=== PATIENT | male | born 1945 | race Caucasian/White ===

== ENCOUNTER 2022-03-13 19:39 | Inpatient (IN) | payer OTHER ==
[~2022-03-13] VITALS: Ht 170.2 cm; Wt 80.0 kg
[2022-03-13 20:26] LABS: BASOPHIL 0.6 % (0-2); EOSINOPHIL 1.7 % (0-7); HGB 11.9 g/dl (13.2-18.0); LYMPHOCYTE 6.7 % (15-48); MCH 30.8 pg (25.0-31.0); MCV 88.1 fL (78.0-100.0); MONOCYTE 1.7 % (0-12); MPV 10.2 fL (6.0-9.5); NEUTROPHIL 88.2 % (41-80); NRBC 0; PLT 102 K/uL (150-400); RBC 3.86 M/uL (4.70-6.00); RDW 15.1 % (11.5-14.0)
[2022-03-13 20:29] LABS: BILIRUBIN NEGATIVE (NEGATIVE); BLOOD 2+ Ery/uL (NEGATIVE); CLARITY CLEAR (CLEAR); COLOR YELLOW (YELLOW); GLUCOSE (U) NORMAL (NORMAL); LEUKOCYTES NEGATIVE Leu/uL (NEGATIVE); NITRITE POSITIVE (NEGATIVE); PROTEIN 1+ mg/dL (NEGATIVE); SPECIFIC GRAVITY 1.025 (1.001-1.030); UROBILINOGEN 0.2 mg/dL (0.2-1.0)
[2022-03-13 20:31] LABS: WBC 5.4 K/uL (4.0-10.5)
[2022-03-13 20:57] LABS: ALBUMIN 2.8 g/dL (3.4-5.0); BILIRUBIN - TOTAL 0.5 mg/dL (0.2-1.0); BUN/CREAT RATIO (CALC) 15.9 RATIO; CREATININE 1.32 mg/dL (0.67-1.17); GLOBULIN (CALCULATION) 4.6 g/dL; LACTIC ACID 1.4 mmol/L (0.4-1.9); TOTAL PROTEIN 7.4 g/dL (6.4-8.2)
[2022-03-13 21:03] LABS: URINARY RBC 20-50
[2022-03-13 21:04] LABS: AMORPHOUS URATES CRYSTALS TRACE; BACTERIA TRACE; SQUAMOUS EPITHELIAL CELLS RARE
[2022-03-13 21:21] LABS: CORONAVIRUS 2019 SARS-COV-2 NEGATIVE (NEGATIVE); INFLUENZA A NAA NEGATIVE (NEGATIVE)
[2022-03-14 05:36] LABS: BASOPHIL 0.5 % (0-2); EOSINOPHIL 1.3 % (0-7); HCT 32.3 % (42.0-52.0); HGB 10.6 g/dl (13.2-18.0); LYMPHOCYTE 14.1 % (15-48); MCH 29.4 pg (25.0-31.0); MCHC 32.8 g/dL (32.0-36.0); MCV 89.7 fL (78.0-100.0); MPV 10.5 fL (6.0-9.5); NEUTROPHIL 79.7 % (41-80); NRBC 0.3; PLT 54 K/uL (150-400); RDW 15.4 % (11.5-14.0); WBC 6.4 K/uL (4.0-10.5)
[2022-03-14] MEDS ORDERED: LASIX40 MG PO (11:00)
[2022-03-14] MEDS ORDERED: PEPCID AC20 MG PO (11:01)
[2022-03-14] MEDS ORDERED: CARDIZEM CD180 MG PO (11:01)
[2022-03-14] MEDS ORDERED: ZESTRIL5 MG PO (11:01)
[2022-03-14] MEDS ORDERED: AUGMENTIN250 MG PO (11:03)
[2022-03-14] MEDS ORDERED: ATENOLOL25 MG PO (11:03)
[2022-03-14] MEDS ORDERED: ALLOPURINOL300 MG PO (11:03)
[2022-03-14] MEDS ORDERED: HCTZ12.5 MG PO (11:04)
[2022-03-14] MEDS ORDERED: ARICEPT 5MG TABL5 MG PO (11:04)
[2022-03-14] MEDS ORDERED: PROTONIX 40MG T40 MG PO (11:04)
[2022-03-14] MEDS ORDERED: LIPITOR40 MG PO (11:06)
[2022-03-14] MEDS ORDERED: METFORMIN HCL500 M3 PO (11:09)
[2022-03-14 18:38] LABS: RETICULOCYTE COUNT 1.1 % (1.0-2.0)
[2022-03-14 19:04] LABS: IRON % SATURATION 16.3 %SAT (20-50)
[2022-03-14 19:16] LABS: BUN/CREAT RATIO (CALC) 16.9 RATIO; CREATININE 1.36 mg/dL (0.67-1.17); FOLIC ACID (SERUM) 16.9 ng/mL (8.6-58.9); MAGNESIUM 2.2 mg/dL (1.8-2.4); POTASSIUM 3.4 mmol/L (3.5-5.1)
[2022-03-15 06:15] LABS: BASOPHIL 0.7 % (0-2); EOSINOPHIL 4.6 % (0-7); HGB 11.3 g/dl (13.2-18.0); LYMPHOCYTE 20.3 % (15-48); MCH 29.7 pg (25.0-31.0); MCHC 33.2 g/dL (32.0-36.0); MCV 89.2 fL (78.0-100.0); MONOCYTE 4.4 % (0-12); MPV 10.3 fL (6.0-9.5); NEUTROPHIL 68.5 % (41-80); NRBC 0; RBC 3.81 M/uL (4.70-6.00); RDW 15.5 % (11.5-14.0); WBC 4.5 K/uL (4.0-10.5)
[2022-03-15 06:22] LABS: ALBUMIN 2.4 g/dL (3.4-5.0); BILIRUBIN - TOTAL 0.7 mg/dL (0.2-1.0); BUN/CREAT RATIO (CALC) 17.2 RATIO; CREATININE 1.22 mg/dL (0.67-1.17); GLOBULIN (CALCULATION) 4.1 g/dL; MAGNESIUM 1.9 mg/dL (1.8-2.4); POTASSIUM 3.4 mmol/L (3.5-5.1); TOTAL PROTEIN 6.5 g/dL (6.4-8.2)
[2022-03-15 06:39] LABS: PLT 18 K/uL (150-400)
[2022-03-15 08:43] LABS: EOSINOPHIL(M) 4 % (0-7); LYMPHOCYTE(M) 18 % (15-48); MONOCYTE(M) 3 % (0-12)
[2022-03-15 08:44] LABS: PLATELET ESTIMATE DECREASED; PLATELET MORPHOLOGY NORMAL
[2022-03-15 09:00] LABS: TOTAL CELL COUNT 100
[2022-03-15 09:01] LABS: PROMYELOCYTE 2
[2022-03-15 09:05] LABS: NEUTROPHILS(M) 73 % (41-80)
[2022-03-15 10:16] LABS: EOSINOPHIL 4.3 % (0-7); HCT 33.3 % (42.0-52.0); LYMPHOCYTE 14.8 % (15-48); MCH 29.5 pg (25.0-31.0); MCV 89.3 fL (78.0-100.0); MONOCYTE 5.6 % (0-12); MPV 11.4 fL (6.0-9.5); NEUTROPHIL 73.7 % (41-80); NRBC 0; RBC 3.73 M/uL (4.70-6.00); RDW 15.4 % (11.5-14.0); WBC 4.9 K/uL (4.0-10.5)
[2022-03-15 10:19] LABS: INR 1.2 (0.9-1.2); PROTHROMBIN TIME 14.8 SECONDS (11.9-13.9); PTT 35.5 SECONDS (24.9-34.6)
[2022-03-15 10:27] LABS: ALBUMIN 2.4 g/dL (3.4-5.0); BILIRUBIN - TOTAL 0.7 mg/dL (0.2-1.0); BUN/CREAT RATIO (CALC) 16.7 RATIO; CREATININE 1.2 mg/dL (0.67-1.17); GLOBULIN (CALCULATION) 4.1 g/dL; POTASSIUM 3.5 mmol/L (3.5-5.1); TOTAL PROTEIN 6.5 g/dL (6.4-8.2)
[2022-03-15 10:30] LABS: PLT 16 K/uL (150-400)
[2022-03-15 10:34] LABS: D-DIMER 6.55 ug/mLFEU (0.00-0.41)
[2022-03-16 06:16] LABS: BASOPHIL 0.4 % (0-2); EOSINOPHIL 0.8 % (0-7); HCT 33.4 % (42.0-52.0); HGB 11.2 g/dl (13.2-18.0); LYMPHOCYTE 11.5 % (15-48); MCH 29.5 pg (25.0-31.0); MCHC 33.5 g/dL (32.0-36.0); MCV 87.9 fL (78.0-100.0); MONOCYTE 2.3 % (0-12); MPV 12.2 fL (6.0-9.5); NEUTROPHIL 83.9 % (41-80); NRBC 0; WBC 5.2 K/uL (4.0-10.5)
[2022-03-16 06:33] LABS: PLT 16 K/uL (150-400)
[2022-03-16 06:36] LABS: ALBUMIN 2.7 g/dL (3.4-5.0); BILIRUBIN - TOTAL 0.8 mg/dL (0.2-1.0); BUN/CREAT RATIO (CALC) 21.2 RATIO; CREATININE 1.18 mg/dL (0.67-1.17); GLOBULIN (CALCULATION) 3.8 g/dL; MAGNESIUM 1.7 mg/dL (1.8-2.4); POTASSIUM 4.2 mmol/L (3.5-5.1); TOTAL PROTEIN 6.5 g/dL (6.4-8.2)
[2022-03-16 10:07] LABS: BILIRUBIN NEGATIVE (NEGATIVE); BLOOD 3+ Ery/uL (NEGATIVE); CLARITY CLEAR (CLEAR); COLOR YELLOW (YELLOW); GLUCOSE (U) NORMAL (NORMAL); LEUKOCYTES NEGATIVE Leu/uL (NEGATIVE); NITRITE NEGATIVE (NEGATIVE); PROTEIN 1+ mg/dL (NEGATIVE); SPECIFIC GRAVITY 1.015 (1.001-1.030); UROBILINOGEN 0.2 mg/dL (0.2-1.0); pH 5.5 (5.0-9.0)
[2022-03-16 10:15] LABS: BACTERIA TRACE
[2022-03-16 14:23] LABS: BASOPHIL 0.3 % (0-2); EOSINOPHIL 0.1 % (0-7); HCT 33.4 % (42.0-52.0); HGB 11.5 g/dl (13.2-18.0); LYMPHOCYTE 12.6 % (15-48); MCH 30.7 pg (25.0-31.0); MCHC 34.4 g/dL (32.0-36.0); MCV 89.1 fL (78.0-100.0); MONOCYTE 4.9 % (0-12); MPV 10.5 fL (6.0-9.5); NEUTROPHIL 81.2 % (41-80); NRBC 0; RBC 3.75 M/uL (4.70-6.00); RDW 14.9 % (11.5-14.0); RETICULOCYTE COUNT 1.7 % (1.0-2.0); WBC 6.9 K/uL (4.0-10.5)
[2022-03-16 14:30] LABS: PLT 16 K/uL (150-400)
[2022-03-16 14:33] LABS: INR 1.24 (0.9-1.2); PROTHROMBIN TIME 15.2 SECONDS (11.9-13.9)
[2022-03-16 14:48] LABS: D-DIMER 6.21 ug/mLFEU (0.00-0.41)
[2022-03-17 06:42] LABS: BASOPHIL 0.4 % (0-2); EOSINOPHIL 1.2 % (0-7); HCT 32.3 % (42.0-52.0); HGB 10.8 g/dl (13.2-18.0); LYMPHOCYTE 19.3 % (15-48); MCH 29.7 pg (25.0-31.0); MCHC 33.4 g/dL (32.0-36.0); MCV 88.7 fL (78.0-100.0); MONOCYTE 6.5 % (0-12); NEUTROPHIL 71.3 % (41-80); NRBC 0; RBC 3.64 M/uL (4.70-6.00); RDW 14.7 % (11.5-14.0); WBC 8.5 K/uL (4.0-10.5)
[2022-03-17 06:44] LABS: ALBUMIN 2.7 g/dL (3.4-5.0); BILIRUBIN - TOTAL 0.7 mg/dL (0.2-1.0); BUN/CREAT RATIO (CALC) 25.4 RATIO; C-REACTIVE PROTEIN 2.7 mg/dL (<=0.90); CREATININE 1.3 mg/dL (0.67-1.17); GLOBULIN (CALCULATION) 4.3 g/dL; MAGNESIUM 2.2 mg/dL (1.8-2.4); POTASSIUM 3.9 mmol/L (3.5-5.1)
[2022-03-17 06:46] LABS: INR 1.15 (0.9-1.2); PROTHROMBIN TIME 14.4 SECONDS (11.9-13.9); PTT 34.5 SECONDS (24.9-34.6)
[2022-03-17 06:47] LABS: D-DIMER 3.35 ug/mLFEU (0.00-0.41)
[2022-03-17 06:50] LABS: PLT 14 K/uL (150-400)
[2022-03-17 07:58] LABS: BAND 1 % (0-10); EOSINOPHIL(M) 1 % (0-7); LYMPHOCYTE(M) 20 % (15-48); MONOCYTE(M) 8 % (0-12); TOTAL CELL COUNT 100
[2022-03-17 08:00] LABS: NEUTROPHILS(M) 70 % (41-80)
[2022-03-17 08:01] LABS: PLATELET ESTIMATE DECREASED; PLATELET MORPHOLOGY NORMAL
[2022-03-18 06:20] LABS: BASOPHIL 0.5 % (0-2); EOSINOPHIL 3.7 % (0-7); HCT 32.8 % (42.0-52.0); HGB 10.9 g/dl (13.2-18.0); LYMPHOCYTE 17.8 % (15-48); MCH 29.7 pg (25.0-31.0); MCHC 33.2 g/dL (32.0-36.0); MCV 89.4 fL (78.0-100.0); MONOCYTE 7.6 % (0-12); MPV 11.9 fL (6.0-9.5); NEUTROPHIL 69.2 % (41-80); NRBC 0; RBC 3.67 M/uL (4.70-6.00); RDW 14.9 % (11.5-14.0); WBC 10.6 K/uL (4.0-10.5)
[2022-03-18 06:29] LABS: PLT 31 K/uL (150-400)
[2022-03-18 06:37] LABS: INR 1.12 (0.9-1.2); PROTHROMBIN TIME 14.1 SECONDS (11.9-13.9)
[2022-03-18 06:38] LABS: D-DIMER 3.14 ug/mLFEU (0.00-0.41)
[2022-03-18 07:05] LABS: ALBUMIN 2.7 g/dL (3.4-5.0); BILIRUBIN - TOTAL 0.7 mg/dL (0.2-1.0); BUN/CREAT RATIO (CALC) 26.2 RATIO; C-REACTIVE PROTEIN 1.7 mg/dL (<=0.90); CREATININE 1.22 mg/dL (0.67-1.17); MAGNESIUM 1.7 mg/dL (1.8-2.4); POTASSIUM 3.7 mmol/L (3.5-5.1); TOTAL PROTEIN 6.7 g/dL (6.4-8.2)
[2022-03-18 07:13] LABS: BAND 2 % (0-10); EOSINOPHIL(M) 4 % (0-7); LYMPHOCYTE(M) 24 % (15-48); MONOCYTE(M) 6 % (0-12); NEUTROPHILS(M) 64 % (41-80); PLATELET ESTIMATE DECREASED; PLATELET MORPHOLOGY NORMAL
--- NOTE | 2022-03-18 13:11 | NUR ---
03/18/22 Mr. Hammer and his girlfriend share homes together. They live in his house in [place] for 2 weeks and then go to her home in [place], [place] for 2 weeks. - Mr. Hammer is independent and does not use any DME. His GF does the driving. He does not drive. - Dr. Herman is the PCP. - Mr. Hammer reports to be able to meet his financial obligation. No need for interventions were identified.
[2022-03-18 15:10] LABS: LYME TOTAL ANTIBODY EIA Negative (Negative)
[2022-03-19 05:44] LABS: BASOPHIL 0.6 % (0-2); EOSINOPHIL 3.9 % (0-7); HCT 33.3 % (42.0-52.0); HGB 11.1 g/dl (13.2-18.0); LYMPHOCYTE 16.9 % (15-48); MCH 29.7 pg (25.0-31.0); MCHC 33.3 g/dL (32.0-36.0); MONOCYTE 5.8 % (0-12); NEUTROPHIL 71.6 % (41-80); NRBC 0.2; RBC 3.74 M/uL (4.70-6.00); RDW 14.8 % (11.5-14.0); WBC 12.5 K/uL (4.0-10.5)
[2022-03-19 05:49] LABS: PLT 39 K/uL (150-400)
[2022-03-19 06:33] LABS: BUN/CREAT RATIO (CALC) 27.7 RATIO; CREATININE 1.19 mg/dL (0.67-1.17); POTASSIUM 3.8 mmol/L (3.5-5.1)
[2022-03-19] MEDS ORDERED: LEVAQUIN500 MG PO (11:36)
== END 2022-03-19 15:45 | disposition home or self-care (01) | DRG 871 ==
LOC: FER 19:39 → FTCU 03-14 09:56
PROVIDERS: Internal Medicine; ADMIT Internal Medicine
PROC: 3E03329 Introduction of Other Anti-infective into Peripheral Vein, Percutaneous Approach (ICD-10-PCS; 2022-03-13)
PROC: 5A09357 Assistance with Respiratory Ventilation, Less than 24 Consecutive Hours, Continuous Positive Airway Pressure (ICD-10-PCS; 2022-03-13)
PROC: 0T9B70Z Drainage of Bladder with Drainage Device, Via Natural or Artificial Opening (ICD-10-PCS; 2022-03-13)
PROC: 30233R1 Transfusion of Nonautologous Platelets into Peripheral Vein, Percutaneous Approach (ICD-10-PCS; principal; 2022-03-15)
PROC: 30233R1 Transfusion of Nonautologous Platelets into Peripheral Vein, Percutaneous Approach (ICD-10-PCS; 2022-03-15)
PROC: 30233R1 Transfusion of Nonautologous Platelets into Peripheral Vein, Percutaneous Approach (ICD-10-PCS; 2022-03-17)
DX: A41.9 Sepsis, unspecified organism (principal); G93.41 Metabolic encephalopathy; J96.01 Acute respiratory failure with hypoxia; K65.1 Peritoneal abscess; N30.01 Acute cystitis with hematuria; I13.0 Hypertensive heart and chronic kidney disease with heart failure and stage 1 through stage 4 chronic kidney disease, or unspecified chronic kidney disease; A77.40 Ehrlichiosis, unspecified; R65.20 Severe sepsis without septic shock; Z20.822 Contact with and (suspected) exposure to COVID-19; F03.90 Unspecified dementia, unspecified severity, without behavioral disturbance, psychotic disturbance, mood disturbance, and anxiety; E83.42 Hypomagnesemia; E11.22 Type 2 diabetes mellitus with diabetic chronic kidney disease; I25.10 Atherosclerotic heart disease of native coronary artery without angina pectoris; J43.9 Emphysema, unspecified; I71.2 Thoracic aortic aneurysm, without rupture; D69.6 Thrombocytopenia, unspecified; E87.6 Hypokalemia; N18.9 Chronic kidney disease, unspecified; I50.9 Heart failure, unspecified; Z86.73 Personal history of transient ischemic attack (TIA), and cerebral infarction without residual deficits; Z87.891 Personal history of nicotine dependence; Z90.49 Acquired absence of other specified parts of digestive tract; Z79.899 Other long term (current) drug therapy
CPT/HCPCS: 36415; 36430; 36600; 70450; 71045; 71046; 71250; 80048; 80053; 81001; 82607; 82728; 82746; 82803; 82962; 83036; 83540; 83550; 83605; 83615; 83735; 83880; 84145; 84484; 85025; 85379; 85384; 85610; 85730; 86140; 86160; 86162; 86618; 86757; 86803; 86880; 86900; 86901; 87040; 87045; 87046; 87088; 87205; 87449; 93005; 94010; 94640; 94667; 94668; 96365; 96366; 96375; J0780; J1100; J1956; J2185; J2543; J2916; J3475; J7030; J7050; P9035; Q9967; U0002